=== PATIENT | male | born 1950 | race Caucasian/White ===

== ENCOUNTER 2020-06-06 10:53 | Inpatient (IN) | payer OTHER ==
[~2020-06-06] VITALS: Ht 177.8 cm; Wt 104.3 kg
[2020-06-06 10:59] VITALS: BP 149/74
[2020-06-06 12:08] LABS: ABSOLUTE NEUTROPHILS 2.8 thou/uL (1.4-8.2); BASOPHILS 0.3 % (0.0-2.0); EOSINOPHILS 4.5 % (0.0-3.0); HEMATOCRIT 37.4 % (42.0-52.0); HEMOGLOBIN 12.6 gm/dL (14.0-18.0); LYMPHOCYTES 22.2 % (24.0-44.0); MCH 32.4 pg (26.0-34.0); MCHC 33.6 g/dL (28.0-37.0); MCV 96.3 fL (80.0-100.0); MONOCYTES 14.4 % (1.0-8.0); PLATELET COUNT 227 thou/uL (150-400); POLYS 58.6 % (36.0-66.0); RBC 3.89 mil/uL (4.50-6.00); RDW 13.5 % (10.5-14.5); WBC 4.8 thou/uL (4.0-11.0)
[2020-06-06 12:20] LABS: CALCIUM 9.3 mg/dL (8.5-10.1); CREATININE 0.9 mg/dL (0.7-1.3); POTASSIUM 4.2 mmol/L (3.5-5.1)
[2020-06-06 12:21] LABS: PROTIME 10.3 Seconds (9.3-11.4)
[2020-06-06 12:27] LABS: ALBUMIN 3.6 g/dL (3.4-5.0); TOTAL BILIRUBIN 0.4 mg/dL (0.2-1.0); TOTAL PROTEIN 7.7 g/dL (6.4-8.2)
[2020-06-06 13:57] VITALS: BP 162/97
[2020-06-06 13:59] VITALS: BP 157/99
--- NOTE | 2020-06-06 14:07 | NUR ---
ATTEMPTED TO CALL REPORT WAS NOTIFIED RN ACCEPTING PATIENT IS DOING DISCHARGE TEACHING WITH PATIENT ON HER UNIT. INSTRUCTED TO CALL BACK FOR REPORT IF AVAIL. HANDOFF TOOL ALREADY FAXED TO UNIT. WILL ASSIST FURTHER IF NEEDED.
[2020-06-06 14:21] LABS: CHOLESTEROL 247 mg/dL (<200); HDL CHOLESTEROL 58 mg/dL (>40); LDL CHOLESTEROL 171 mg/dL (<100); TC:HDL 4.3 Ratio (Not establshd); TRIGLYCERIDE 93 mg/dL (<150); VLDL 19 mg/dL (<40)
[2020-06-06 14:33] VITALS: BP 163/91
[2020-06-06 15:46] VITALS: BP 151/76
--- NOTE | 2020-06-06 16:00 | NUR ---
PATIENT ARRIVED TO UNIT AT 1409. PATIENT'S WAS PRESENT AND PATIENT'S BELONGINGS WERE ACCOUNTED FOR.
[2020-06-06 20:59] VITALS: BP 152/91
[2020-06-07 05:34] LABS: ABSOLUTE NEUTROPHILS 2.8 thou/uL (1.4-8.2); BASOPHILS 0.5 % (0.0-2.0); EOSINOPHILS 6.6 % (0.0-3.0); HEMATOCRIT 36.7 % (42.0-52.0); HEMOGLOBIN 12.1 gm/dL (14.0-18.0); LYMPHOCYTES 23.7 % (24.0-44.0); MCH 31.9 pg (26.0-34.0); MCV 96.6 fL (80.0-100.0); MONOCYTES 13.3 % (1.0-8.0); PLATELET COUNT 238 thou/uL (150-400); POLYS 55.9 % (36.0-66.0); RBC 3.81 mil/uL (4.50-6.00); RDW 13.6 % (10.5-14.5); WBC 4.9 thou/uL (4.0-11.0)
--- NOTE | 2020-06-07 05:37 | NUR ---
PATIENT NOT SEEING DOUBLE VISION THIS MORNING. NO NUMBESS TO THE CHEEK THIS MORNING.PAIN CONTROLLED THIS SHIFT. PATIENT IS UP AT [facility]. PATIENT IN BED ASLEEP AT THIS TIME BREATHING REGULAR AND UNLABOURED.
[2020-06-07 05:47] LABS: CALCIUM 8.7 mg/dL (8.5-10.1); POTASSIUM 3.7 mmol/L (3.5-5.1)
[2020-06-07 08:39] VITALS: BP 158/85
--- NOTE | 2020-06-07 09:27 | EKG ---
[place] [address] [address] [facility] [place] [address] ELECTROCARDIOGRAM REPORT Name: IMMANUEL BALDERAS Room #: 462-P ADM IN M.R.#: [id number] Admission: 06/06/20 Attend Phys: Dionisio Mittal MD Discharge: Date of : 54 Report #: [id number] [facility] ED Test Date: 2020-06-06 Test Time: 11:32:26 Pat Name: IMMANUEL BALDERAS Department: Room: 462 Gender: M Pediatric Care Coordinator: RADHA : 1950 Requested By: Jon Ríos Order Number: [id number] MD: Abelardo Sunshine Measurements Intervals [place] Rate: 77 P: 43 CA: 165 QRS: 29 QRSD: 97 T: 6 QT: 426 QTc: 483 Interpretive Statements Sinus rhythm No significant abnormality Baseline wander in lead(s) II,V4 No previous ECG available for comparison Electronically Signed On 06-07-2020 9:27:39 CDT by Abelardo Sunshine [email or web address] <ELECTRONICALLY SIGNED> By: Abelardo Sunshine MD, [facility] 06/07/20 0927 1132 1132 Abelardo Sunshine MD, FACC /EPI
--- NOTE | 2020-06-07 10:02 | 2DMMODE ---
[facility] [place] [address] 2 D/M-MODE ECHOCARDIOGRAM Name: IMMANUEL BALDERAS Room #: 462-P ADM IN M.R.#: [id number] Admission: 06/06/20 Attend Phys: Dionisio Mittal MD Discharge: Date of : 54 Report #: [id number] THIS REPORT FOR: cc: Gustavo Perez David J. DO Lundgren, Craig H. MD [facility] ~ APPROVED REPORT Study performed: 06/07/2020 09:34:15 EXAM: Comprehensive 2D, Doppler, and color-flow Echocardiogram Patient Location: Bedside Room #: 462 Status: routine BSA: 2.21 HR: 69 bpm BP: 152/91 mmHg Rhythm: NSR Other Information Study Quality: Adequate Indications Double vision. Echo Enhancing Agent Indication: Rule out Shunt Agent(s) / Amount(s) Used: Agitated Saline 7 cc 2D Dimensions RVDd: 32.49 mm IVSd: 11.54 (7-11mm) LVOT Diam: 23.40 (18-24mm) LVDd: 47.20 mm PWd: 10.95 (7-11mm) Ascending Ao: 34.43 (22-36mm) LVDs: 34.00 (25-40mm) Aortic Root: 36.44 mm Volumes Left Atrial Volume (Systole) Single Plane 4CH: 38.62 mL Single Plane 2CH: 57.79 mL Aortic Valve AoV Peak Darron.: 1.20 m/s AO Peak Gr.: 5.78 mmHg LVOT Max P.10 mmHg [facility] [address] [address] 2 D/M-MODE ECHOCARDIOGRAM Name: SHERRIEIMMANUEL HUTCHINSON Room #: 462-P ADM IN M.R.#: [id number] Admission: 06/06/20 Attend Phys: Rosalie Cooley Discharge: Date of : 54 Report #: [id number] LVOT Max V: 1.01 m/s BERNARDO Vmax: 3.62 cm2 Mitral Valve E/A Ratio: 1.0 MV Decel. Time: 157.06 ms MV E Max Darron.: 0.73 m/s MV A Darron.: 0.70 m/s MV PHT: 45.55 ms IVRT: 92.27 ms Pulmonary Valve PV Peak Darron.: 0.93 m/s PV Peak Gr.: 3.46 mmHg Pulmonary Vein P Vein S: 0.46 m/s P Vein A: 0.28 m/s P Vein D: 0.37 m/s P Vein A Dur.: 110.7 msec P Vein S/D Ratio: 1.24 Tricuspid Valve TR Peak Darron.: 2.52 m/s RAP Estimate: 5.00 mmHg TR Peak Gr.: 25.49 mmHg PA Pressure: 30.00 mmHg Left Ventricle The left ventricle is normal size. There is normal LV segmental wall motion. There is normal left ventricular wall thickness. Left ventricular systolic function is normal. LVEF is 60-65%. Mild diastolic dysfunction Right Ventricle The right ventricle is normal size. The right ventricular systolic function is normal. Atria The left atrium size is normal. No shunting by contrast bubble injection. The right atrium size is normal. Aortic Valve Aortic valve is trileaflet; mildly calcified. No aortic regurgitation is present. There is no aortic valvular stenosis. Mitral Valve The mitral valve is normal in structure. There is no mitral valve regurgitation noted. No evidence of mitral valve stenosis. [facility] [address] [place] [address] 2 D/M-MODE ECHOCARDIOGRAM Name: IMMANUEL BALDERAS Room #: 462-P ADM IN M.R.#: [id number] Admission: 06/06/20 Attend Phys: Rosalie Cooley Discharge: Date of : 54 Report #: [id number] Tricuspid Valve The tricuspid valve is normal in structure. Trace tricuspid regurgitation. Estimated PAP is 30mmHg. Pulmonic Valve The pulmonary valve is normal in structure. There is no pulmonic valvular regurgitation. Great Vessels The aortic root is normal in size. The ascending aorta is normal in size. IVC is normal in size and collapses >50% with inspiration. Pericardium There is no pericardial effusion. <Conclusion> Left ventricular systolic function is normal. There is normal LV segmental wall motion. LVEF is 60-65%. Mild diastolic dysfunction No shunting by contrast bubble injection. Aortic valve is trileaflet; mildly calcified. No aortic regurgitation or stenosis. The mitral valve is normal in structure. No mitral valve regurgitation. Trace tricuspid regurgitation. Estimated pulmonary artery pressure of 30mmHg. There is no pericardial effusion. <ELECTRONICALLY SIGNED> By: Abelardo Sunshine MD, FACC 06/07/20 1002 1002 1002 Abelardo Sunshine MD, FACC /INF
--- NOTE | 2020-06-07 12:52 | NUR ---
ORDERS RECEIVED FOR PT EVAL AND TREAT. Pt WAS ADMITTED TO R/O CVA, DIPLOPIA, L FACIAL NUMBNESS. Pt LIVES W/ IN RANCH STYLE HOME. INDEP W/ GAIT. Pt WAS VISUALIZED UP WALKING IN HALLWAY AND IN/OUT OF BATHROOM W/O DIFFICULTY. Pt REPORTS HIS GLASSES HELP W/ THE DOUBLE VISION AND IT GOES AWAY WHEN HE CLOSES ONE EYE. STATES HIS L CHEEK FEELS 'LIKE NOVOCAINE.' REPORTED NO CONCERNS W/ MOBILITY AND DECLINED NEED FOR PT AT THIS TIME. ACUTE PT TO SIGN OFF. RN NOTIFIED ABOUT REQUEST FOR PAIN MEDS FOR HEADACHE.
--- NOTE | 2020-06-07 15:43 | NUR ---
PT ADMITTED RELATED TO DOUBLE VISION, L FACIAL NUMBNESS. CM REVEIWED CHART AND SPOKE WITH CARE TEAM. CM MET WITH PT AND SPOUSE AT BEDSIDE THIS DAY. PT APPEARED TO BE A&O X4. CM ROLE INTRODUCED. PT AND SPOUSE INDICATED THEY RESIDE IN A RANCH STYLE HOUSE AND THERE ARE 2 STEPS TO ENTER AND NONE INSIDE. 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 PT INDICATED NO DME. CM TO FOLLOW INDICATED WITH DC PLANNING. PT INDICTED HE PLANS TO RETURN HOME ONCE MEDICALLY STABLE. CM TO FOLLOW INDICATED WITH DC PLANNING.
--- NOTE | 2020-06-07 16:17 | NUR ---
ASSUMED CARE OF PATIENT AT SHIFT CHNAGE; 0700. ASSESSMENT CHARTED, MEDICATIONS ADMINISTERED PER EMAR. VSS. PATIENT IS A&OX4 AND MAKES NEEDS KNOWN. SPOUSE IS AT BEDSIDE. PATIENT C/O HEADACHE; PARTIALLY RELIEVED BY TYLENOL. PATIENT HAD A CT DONE THIS DAY INDICATING NEW LESIONS FOUND SUGGESTING NEW CANCER. ONCOLOGY CONSULTED AND MEDICAL RECORD REQUEST AND RELEASE SENT TO [facility]. PATIENT STATES "I DON'T NEED TO BE HERE IF THEY'RE NOT HELPING ME WITH MY DOUBLE VISION OR FACIAL NUMBNESS". PROVIDER NOTIFIED OF PATIENTS DESIRE TO DISCHARGE. PATIENT OTHERWISE VOICES NO FURTHER NEEDS. WILL CONTINUE TO MONITOR PATIENT AND FOLLOW PLAN OF CARE
[2020-06-07 17:45] VITALS: BP 170/102
[2020-06-07 19:24] VITALS: BP 170/102
--- NOTE | 2020-06-07 19:31 | NUR ---
PATIENT WAS CALLED BY PROVIDER AND VERBALLY GRANTED DISCHARGE HOWEVER THERE ARE NO WRITTEN DISCHARGE ORDERS. PROVIDERS WERE CALLED AND NOTIFIED OF SITUATION; NURSING STAFF WAS TOLD THEY ARE WORKING ON THE DISCHARGE. NOC R WAS HANDED OFF INFO; NORMAN SAAVEDRA NOTIFIED AND "ACTIVELY WORKING ON IT". ITEM REPAIR MANAGER ALSO NOTIFIED
== END 2020-06-07 20:01 | disposition home or self-care (01) | DRG 123 ==
LOC: ER 10:53 → EROBS 13:28 → 4W 13:28
PROVIDERS: Emergency Medicine; Nurse Practitioner; ADMIT Hospitalist; ATTEND Hospitalist
DX: H53.2 Diplopia (principal); G70.80 Lambert-Eaton syndrome, unspecified; I10 Essential (primary) hypertension; Z85.46 Personal history of malignant neoplasm of prostate; Z79.899 Other long term (current) drug therapy; R91.1 Solitary pulmonary nodule; G70.9 Myoneural disorder, unspecified
CPT/HCPCS: 10045